=== PATIENT | male | born 1965 | race African-American/Black ===

== ENCOUNTER 2018-01-20 11:09 | Emergency (ER) | payer OTHER ==
[~2018-01-20] VITALS: Ht 170.2 cm; Wt 103.0 kg
[2018-01-20 11:15] VITALS: BP 133/79
== END 2018-01-20 19:01 | disposition left against medical advice (07) ==
LOC: ER 11:09
DX: Z53.21 Procedure and treatment not carried out due to patient leaving prior to being seen by health care provider (principal)

== ENCOUNTER 2018-11-18 02:46 | Emergency (ER) | payer OTHER ==
[~2018-11-18] VITALS: Ht 170.2 cm; Wt 89.0 kg
[2018-11-18] MEDS ORDERED: LIDOCAINE HCL/EPINEPHRINE 1%-EPI 1:100,000 20 ML VIAL INFIL ONE (04:15)
[2018-11-18] MEDS ORDERED: HYDROCODONE/ACETAMINOPHEN 5/325MG TABLET PO ONE (04:15)
[2018-11-18 06:43] VITALS: BP 136/83
== END 2018-11-18 06:45 | disposition home or self-care (01) ==
LOC: ER 02:46 → CANBEDREQ 07:15
DX: L02.31 Cutaneous abscess of buttock (principal); E11.9 Type 2 diabetes mellitus without complications; F17.200 Nicotine dependence, unspecified, uncomplicated
CPT/HCPCS: 10060; 87070; 87077; 87186; 87205; 99283; J3490

== ENCOUNTER 2018-11-19 11:12 | Emergency (ER) | payer OTHER ==
[~2018-11-19] VITALS: Ht 170.2 cm; Wt 88.0 kg
[2018-11-19 11:17] VITALS: BP 125/87
[2018-11-19] MEDS ORDERED: BACITRACIN ZINC OINT UDPKT TOP ONE (13:00)
== END 2018-11-19 13:10 | disposition home or self-care (01) ==
LOC: ER 11:31
DX: Z48.00 Encounter for change or removal of nonsurgical wound dressing (principal)
CPT/HCPCS: 99283

== ENCOUNTER 2021-07-11 16:23 | Emergency (ER) | payer MEDICAID, OTHER ==
[~2021-07-11] VITALS: Ht 172.7 cm; Wt 75.0 kg
[2021-07-11 16:28] VITALS: BP 158/95
== END 2021-07-11 17:14 | disposition home or self-care (01) ==
LOC: ER 16:23
DX: T16.1XXA Foreign body in right ear, initial encounter (principal); X58.XXXA Exposure to other specified factors, initial encounter
CPT/HCPCS: 99281

== ENCOUNTER 2021-07-15 19:20 | Emergency (ER) | payer MEDICAID ==
[~2021-07-15] VITALS: Ht 172.7 cm; Wt 75.0 kg
[2021-07-15 20:20] VITALS: BP 178/95
[2021-07-15] MEDS ORDERED: TOPUD PO (21:16)
[2021-07-15] MEDS ORDERED: IBUP-2028 MT (21:16)
[2021-07-15] MEDS ORDERED: AMOX-494 MT (21:18)
[2021-07-15] MEDS ORDERED: OFLO5DRO4 RIGHT EAR (21:19)
== END 2021-07-15 21:30 | disposition home or self-care (01) ==
LOC: ER 19:20
DX: H60.91 Unspecified otitis externa, right ear (principal); E11.9 Type 2 diabetes mellitus without complications; I10 Essential (primary) hypertension
CPT/HCPCS: 99283

== ENCOUNTER 2021-11-05 08:27 | Emergency (ER) | payer MEDICAID ==
[~2021-11-05] VITALS: Ht 170.2 cm; Wt 70.7 kg
[~2021-11-05 08:27] MED LIST: AMOX-494 MT; IBUP-2028 MT; OFLO5DRO4 RIGHT EAR; TOPUD PO
[2021-11-05] MEDS ORDERED: ONDANSETRON HCL 4MG/2ML INJ IV STA (09:16)
[2021-11-05] MEDS ORDERED: MORPHINE SULFATE 4 MG/ML CPJ (NOT FOR IM USE) IV STA (09:16)
[2021-11-05] MEDS ORDERED: MAGNESIUM/ALUMINUM HYDROXIDE/SIMETHICONE 30ML UDC PO STA (09:16)
[2021-11-05] MEDS ORDERED: FAMOTIDINE 20MG/2ML VIAL IV STA (09:16)
[2021-11-05] MEDS ORDERED: SODIUM CHLORIDE 0.9% 1,000 ML IV ONE (09:30)
[2021-11-05 09:34] LABS: BASOPHILS % 0.7 % (0.0-2.0); EOSINOPHILS % 0.6 % (0.0-5.0); HEMATOCRIT. 39.1 % (42.0-52.0); HEMOGLOBIN. 13.6 g/dL (14.0-18.0); MEAN CORPUSCULAR HEMOGLOBIN 30.5 pg (28.0-32.0); MEAN CORPUSCULAR VOLUME 87.9 fL (80.0-94.0); MEAN PLATELET VOLUME 8.8 fl (7.4-10.4); MONOCYTES % 7.9 % (2.0-8.0); NEUTROPHILS % 44.8 % (40.0-76.0); PLATELET 175 x1000/uL (130-400); RED BLOOD CELL COUNT 4.45 mill/uL (4.7-6.1); RED CELL DISTRIBUTION WIDTH 13.5 % (11.6-14.6)
[2021-11-05 09:43] LABS: CHLORIDE 105 mEq/L (98-107)
[2021-11-05] MEDS ORDERED: ONDA4TAB5 MT (12:13)
[2021-11-05] MEDS ORDERED: FAMO20TA8 MT (12:13)
[2021-11-05] MEDS ORDERED: MAG355OR20 PO (12:13)
[2021-11-05 12:57] VITALS: BP 151/98
[2021-11-05] MEDS ORDERED: IOHEXOL-300 100 ML BOTTLE ONE (13:52)
[2021-11-06] MEDS ORDERED: METO-293 MT (17:31)
[2021-11-06] MEDS ORDERED: DICY10SO MT (18:15)
[2021-11-10] MEDS ORDERED: LIP40 PO (15:05)
[2021-11-10] MEDS ORDERED: METF-416 PO (15:05)
[2021-11-10] MEDS ORDERED: LISI-186 PO (15:05)
[2021-11-10] MEDS ORDERED: GLIP5TAB12 PO (15:05)
== END 2021-11-05 13:21 | disposition home or self-care (01) ==
LOC: ER 08:27
DX: R10.84 Generalized abdominal pain (principal); K21.9 Gastro-esophageal reflux disease without esophagitis; K58.9 Irritable bowel syndrome, unspecified; E11.65 Type 2 diabetes mellitus with hyperglycemia; I10 Essential (primary) hypertension; Z79.84 Long term (current) use of oral hypoglycemic drugs
CPT/HCPCS: 36415; 71045; 74177; 80053; 83690; 85025; 96361; 96374; 96375; 99285; J2270; J2405; J7030; Q9967; Z7610

== ENCOUNTER 2021-11-06 13:08 | Emergency (ER) | payer MEDICAID ==
[~2021-11-06] VITALS: Ht 170.2 cm; Wt 68.0 kg
[~2021-11-06 13:08] MED LIST changes: +FAMO20TA8 MT; +MAG355OR20 PO; +ONDA4TAB5 MT
[2021-11-06] MEDS ORDERED: MORPHINE SULFATE 4 MG/ML CPJ (NOT FOR IM USE) IV STA (15:35)
[2021-11-06] MEDS ORDERED: DICYCLOMINE 10 MG/5 ML ORAL SYR PO STA (15:35)
[2021-11-06] MEDS ORDERED: SODIUM CHLORIDE 0.9% 1,000 ML IV ONE (15:45)
[2021-11-06] MEDS ORDERED: METOCLOPRAMIDE HCL 10MG/2ML VIAL IV ONE (16:00)
[2021-11-06 16:04] LABS: BASOPHILS % 0.6 % (0.0-2.0); EOSINOPHILS % 0.3 % (0.0-5.0); HEMATOCRIT. 40.3 % (42.0-52.0); HEMOGLOBIN. 13.9 g/dL (14.0-18.0); MEAN CORPUSCULAR HEMOGLOBIN 30.2 pg (28.0-32.0); MEAN CORPUSCULAR VOLUME 87.8 fL (80.0-94.0); MEAN PLATELET VOLUME 8.4 fl (7.4-10.4); MONOCYTES % 6.5 % (2.0-8.0); NEUTROPHILS % 51.6 % (40.0-76.0); PLATELET 194 x1000/uL (130-400); RED BLOOD CELL COUNT 4.59 mill/uL (4.7-6.1); RED CELL DISTRIBUTION WIDTH 13.5 % (11.6-14.6)
[2021-11-06 16:10] LABS: CHLORIDE 104 mEq/L (98-107)
[2021-11-06] MEDS ORDERED: METO-293 MT (17:31)
[2021-11-06] MEDS ORDERED: DICY10SO MT (18:15)
[2021-11-06 18:18] VITALS: BP 156/90
[2021-11-10] MEDS ORDERED: GLIP5TAB12 PO (15:05)
[2021-11-10] MEDS ORDERED: LIP40 PO (15:05)
[2021-11-10] MEDS ORDERED: LISI-186 PO (15:05)
[2021-11-10] MEDS ORDERED: METF-416 PO (15:05)
== END 2021-11-06 18:57 | disposition home or self-care (01) ==
LOC: ER 13:08
DX: R10.13 Epigastric pain (principal); K58.9 Irritable bowel syndrome, unspecified; I10 Essential (primary) hypertension; E11.9 Type 2 diabetes mellitus without complications; Z79.84 Long term (current) use of oral hypoglycemic drugs; Z98.890 Other specified postprocedural states; Z87.828 Personal history of other (healed) physical injury and trauma
CPT/HCPCS: 36415; 80053; 83690; 85025; 96361; 96374; 99283; J2765; J7030

== ENCOUNTER 2022-02-03 04:04 | Inpatient (IN) | payer MEDICAID ==
[~2022-02-03] VITALS: Ht 172.7 cm; Wt 74.4 kg
[2022-02-03] VITALS (36 sets, daily range): BP systolic 60–149; BP diastolic 31–82
[~2022-02-03 04:04] MED LIST changes: -AMOX-494 MT; +DICY10SO MT; +GLIP5TAB12 PO; -IBUP-2028 MT; +LIP40 PO; +LISI-186 PO; +METF-416 PO; +METO-293 MT; +PROT40 MT; +TRAM50TA94 MT
[2022-02-03] MEDS ORDERED: METOCLOPRAMIDE HCL 10MG/2ML VIAL IV STA (04:32)
[2022-02-03] MEDS ORDERED: FAMOTIDINE 20MG/2ML VIAL IV STA (04:32)
[2022-02-03] MEDS ORDERED: SODIUM CHLORIDE 0.9% 1,000 ML IV ONE (04:45)
[2022-02-03 05:50] LABS: HEMATOCRIT. 45.7 % (42.0-52.0); HEMOGLOBIN. 14.9 g/dL (14.0-18.0); MEAN CORPUSCULAR HEMOGLOBIN 29.3 pg (28.0-32.0); MEAN CORPUSCULAR VOLUME 89.8 fL (80.0-94.0); MEAN PLATELET VOLUME 9.5 fl (7.4-10.4); PLATELET 266 x1000/uL (130-400); RED BLOOD CELL COUNT 5.09 mill/uL (4.7-6.1); RED CELL DISTRIBUTION WIDTH 14.5 % (11.6-14.6)
[2022-02-03 05:58] LABS: CHLORIDE 102 mEq/L (98-107)
[2022-02-03 06:05] LABS: BETA HYDROXYBUTYRATE 1.1 mMol/L (0.0-0.3); ETHANOL BLOOD < 10 mg/dL
[2022-02-03 07:33] LABS: PLATELET ESTIMATE NORMAL
[2022-02-03 08:11] LABS: CLARITY URINE CLOUDY (CLEAR); COLOR URINE DARK YELLOW (YELLOW); KETONES URINE TRACE (NEGATIVE); LEUKOCYTE ESTERASE URINE 1+ (NEGATIVE); NITRITE URINE POSITIVE (NEGATIVE); OCCULT BLOOD URINE 3+ (NEGATIVE); PH URINE 5.5 (4.5-8.0); PROTEIN URINE 2+ (NEGATIVE); SPECIFIC GRAVITY URINE 1.023 (1.005-1.030)
[2022-02-03] MEDS ORDERED: SODIUM CHLORIDE 0.9% 10ML VIAL ONE (08:25)
[2022-02-03] MEDS ORDERED: VECURONIUM BROMIDE 10 MG/VIAL IV ONE (08:25)
[2022-02-03 08:29] LABS: *AMPHETAMINES SCREEN URINE NEGATIVE (NEGATIVE); *BARBITURATES SCREEN URINE NEGATIVE (NEGATIVE); *BENZODIAZEPINES SCREEN URINE NEGATIVE (NEGATIVE); *COCAINE SCREEN URINE NEGATIVE (NEGATIVE); CANNABINOID URINE SCREEN PRESUMTIVE POSITIVE (NEGATIVE); METHADONE URINE SCREEN NEGATIVE (NEGATIVE); OPIATES URINE SCREEN NEGATIVE (NEGATIVE); PHENCYCLIDINE URINE SCREEN NEGATIVE (NEGATIVE)
[2022-02-03] MEDS ORDERED: FAMOTIDINE 20MG/2ML VIAL IV NR (09:15)
[2022-02-03] MEDS ORDERED: METOCLOPRAMIDE HCL 10MG/2ML VIAL IV NR (09:15)
[2022-02-03] MEDS ORDERED: IOHEXOL-350 100 ML BOTTLE ONE (09:55)
[2022-02-03] MEDS ORDERED: LEVOFLOXACIN 500MG PREMIX 100 ML IV ONE (10:30)
[2022-02-03] MEDS ORDERED: METRONIDAZOLE 500 MG PREMIX 100 ML IV ONE (10:30)
[2022-02-03] MEDS ORDERED: MORPHINE SULFATE 4 MG/ML CPJ (NOT FOR IM USE) IV ONE (11:00)
[2022-02-03] MEDS ORDERED: NOREPINEPHRINE 8MG/250ML PMX 250 ML IV ONE (12:00)
[2022-02-03] MEDS ORDERED: MORPHINE SULFATE 2 MG/ML CPJ (NOT FOR IM USE) IV NR (14:45)
[2022-02-03] MEDS ORDERED: NOREPINEPHRINE 8MG/250ML PMX 250 ML IV PRN (15:00)
[2022-02-03] MEDS ORDERED: DEXT 5%/0.45% NACL 1000ML 1,000 ML IV SCH (15:30)
[2022-02-03] MEDS ORDERED: ACETAMINOPHEN 325MG TABLET PO PRN (15:30)
[2022-02-03] MEDS ORDERED: PIPERACILLIN/TAZ 3.375G PREMIX 50 ML IV NR (16:00)
[2022-02-03] MEDS: ENOXAPARIN 40MG/0.4ML SYR SUBCUT SCH ×2 (16:00→20:02)
[2022-02-03] MEDS ORDERED: FENTANYL CITRATE/PF 50MCG/ML 2ML VIAL ONE (16:08)
[2022-02-03 16:42] LABS: INR 1.4
[2022-02-03] MEDS ORDERED: NA PHOS,M-B/NA PHOS,DI-BA ENEMA 118ML PR NR (16:45)
[2022-02-03 16:52] LABS: CREATINE KINASE 225 IU/L (39-308)
[2022-02-03] MEDS ORDERED: PHENYLEPHRINE 100 MG in DEXT 5% WATER 240 ML IV PRN (17:00)
[2022-02-03] MEDS: PHENYLEPHRINE 100 MG in DEXT 5% WATER 240 ML IV PRN ×2 (17:53→23:39)
[2022-02-03] MEDS: NOREPINEPHRINE 32 MG in DEXT 5% WATER 218 ML IV PRN ×2 (17:54→23:38)
[2022-02-03] MEDS: VASOPRESSIN 20 UNIT in SODIUM CHLORIDE 0.9% 99 ML IV PRN (19:39)
[2022-02-03] MEDS ORDERED: DOPAMINE 800MG PREMIX (DOUBLE) 250 ML IV PRN (19:45)
[2022-02-03 20:40] LABS: BG BASE EXCESS -28.1 mmol/L (-2.0-2.0); BG CARBOXYHEMOGLOBIN 0.7 % (0.5-1.5); BG DEOXYHEMOGLOBIN 0.2 % (0.0-5.0); BG FRACTION INSPIRED OXYGEN 100; BG HCO3 ACT 8.4 mmol/L (22.0-26.0); BG METHEMOGLOBIN 0.2 % (0.0-1.5); BG OXYGEN SATURATION 99.8 % (92.0-98.5); BG OXYHEMOGLOBIN 98.9 % (94.0-97.0); BG PCO2 61.8 mmHg (35.0-45.0); BG PO2 437.6 mmHg (75.0-100.0); BG SAMPLE SITE RIGHT RADIAL; BG TOTAL HEMOGLOBIN 15.9 g/dL (12.0-18.0); BG VENT MODE VENT - AC
[2022-02-03 20:46] LABS: HEMATOCRIT. 50.1 % (42.0-52.0); HEMOGLOBIN. 15.9 g/dL (14.0-18.0); MEAN CORPUSCULAR HEMOGLOBIN 29.6 pg (28.0-32.0); MEAN CORPUSCULAR VOLUME 93.2 fL (80.0-94.0); MEAN PLATELET VOLUME 9.6 fl (7.4-10.4); PLATELET 240 x1000/uL (130-400); RED BLOOD CELL COUNT 5.38 mill/uL (4.7-6.1); RED CELL DISTRIBUTION WIDTH 15.4 % (11.6-14.6)
[2022-02-03] MEDS ORDERED: SODIUM BICARBONATE 8.4% 1 MEQ/ML 50ML SYR IV NR ×2 (21:00→23:15)
[2022-02-03] MEDS ORDERED: HYDROCORTISONE SOD SUCCINATE 250 MG/2 ML VIAL IV NR (21:00)
[2022-02-03 21:05] LABS: CHLORIDE 111 mEq/L (98-107)
[2022-02-03] MEDS: PIPERACILLIN/TAZOBACTAM 3.375 G in DEXTROSE 5% WATER 50 ML IV SCH (21:05)
[2022-02-03 21:30] LABS: PLATELET ESTIMATE NORMAL
[2022-02-03] MEDS ORDERED: VANCOMYCIN 1,750 MG in DEXT 5% WATER 500 ML IV NR (22:00)
[2022-02-03 22:17] LABS: PHOSPHORUS 12.2 mg/dL (2.5-4.9)
[2022-02-03 22:49] LABS: BG BASE EXCESS -23.1 mmol/L (-2.0-2.0); BG DEOXYHEMOGLOBIN 0.8 % (0.0-5.0); BG FRACTION INSPIRED OXYGEN 50; BG HCO3 ACT 9.4 mmol/L (22.0-26.0); BG METHEMOGLOBIN 0.3 % (0.0-1.5); BG OXYGEN SATURATION 99.2 % (92.0-98.5); BG OXYHEMOGLOBIN 96.9 % (94.0-97.0); BG PCO2 45.9 mmHg (35.0-45.0); BG PEEP (cmH2O) 0 cmH2O; BG PH 6.929 (7.350-7.450); BG SAMPLE SITE RIGHT BRACHIAL; BG TOTAL HEMOGLOBIN 15.7 g/dL (12.0-18.0); BG VENT MODE VENT - AC
[2022-02-04] VITALS (34 sets, daily range): BP systolic 68–137; BP diastolic 47–85
[2022-02-04 00:56] LABS: BG BASE EXCESS -19.9 mmol/L (-2.0-2.0); BG DEOXYHEMOGLOBIN 1.6 % (0.0-5.0); BG FRACTION INSPIRED OXYGEN 50; BG METHEMOGLOBIN 0.2 % (0.0-1.5); BG OXYGEN SATURATION 98.4 % (92.0-98.5); BG OXYHEMOGLOBIN 96.2 % (94.0-97.0); BG PCO2 52.2 mmHg (35.0-45.0); BG PH 6.978 (7.350-7.450); BG PO2 134.8 mmHg (75.0-100.0); BG SAMPLE SITE RIGHT BRACHIAL; BG VENT MODE VENT - AC
[2022-02-04] MEDS ORDERED: SODIUM BICARBONATE 8.4% 1 MEQ/ML 50ML SYR IV NR ×3 (01:15→06:45)
[2022-02-04] MEDS ORDERED: SODIUM BICARBONATE 150 MEQ in DEXTROSE 5% WATER 1,000 ML IV SCH (01:30)
[2022-02-04] MEDS ORDERED: SODIUM BICARBONATE 8.4% 1 MEQ/ML 50ML SYR IV ONE ×2 (04:00→09:22)
[2022-02-04] MEDS ORDERED: SODIUM BICARBONATE 8.4% 1 MEQ/ML 50ML SYR IV SCH (04:00)
[2022-02-04] MEDS ORDERED: SODIUM CHLORIDE 0.9% 500 ML IV ONE (04:45)
[2022-02-04 04:49] LABS: BG BASE EXCESS -12.3 mmol/L (-2.0-2.0); BG CARBOXYHEMOGLOBIN 1.7 % (0.5-1.5); BG DEOXYHEMOGLOBIN 0.8 % (0.0-5.0); BG FRACTION INSPIRED OXYGEN 75; BG HCO3 ACT 16.5 mmol/L (22.0-26.0); BG METHEMOGLOBIN 0.3 % (0.0-1.5); BG OXYGEN SATURATION 99.2 % (92.0-98.5); BG OXYHEMOGLOBIN 97.2 % (94.0-97.0); BG PCO2 48.8 mmHg (35.0-45.0); BG PH 7.147 (7.350-7.450); BG PO2 205.4 mmHg (75.0-100.0); BG SAMPLE SITE RIGHT BRACHIAL; BG TOTAL HEMOGLOBIN 14.2 g/dL (12.0-18.0); BG VENT MODE VENT - AC
[2022-02-04] MEDS: PIPERACILLIN/TAZOBACTAM 3.375 G in DEXTROSE 5% WATER 50 ML IV SCH (05:01)
[2022-02-04 05:34] LABS: HEMATOCRIT. 47.4 % (42.0-52.0); HEMOGLOBIN. 15.6 g/dL (14.0-18.0); MEAN CORPUSCULAR HEMOGLOBIN 30.4 pg (28.0-32.0); MEAN CORPUSCULAR VOLUME 92.5 fL (80.0-94.0); MEAN PLATELET VOLUME 9.9 fl (7.4-10.4); PLATELET 162 x1000/uL (130-400); RED BLOOD CELL COUNT 5.12 mill/uL (4.7-6.1)
[2022-02-04 06:13] LABS: HEPATITIS B SURFACE ANTIGEN NEGATIVE
[2022-02-04] MEDS ORDERED: DIGOXIN 500MCG/2ML AMP IV NR ×2 (06:45→07:45)
[2022-02-04] MEDS: VASOPRESSIN 20 UNIT in SODIUM CHLORIDE 0.9% 99 ML IV PRN (07:45)
[2022-02-04] MEDS: PHENYLEPHRINE 100 MG in DEXT 5% WATER 240 ML IV PRN (07:45)
[2022-02-04] MEDS ORDERED: DEXTROSE 50% WATER 50ML SYRINGE IV ONE ×2 (07:57→09:22)
[2022-02-04] MEDS ORDERED: DEXTROSE 50% WATER 50ML SYRINGE IV NR (08:00)
[2022-02-04] MEDS ORDERED: INSULIN REGULAR (HUMULIN R) 300UNITS/3ML VIAL IV NR (08:00)
[2022-02-04 08:23] LABS: BG BASE EXCESS -5.4 mmol/L (-2.0-2.0); BG CARBOXYHEMOGLOBIN 2.5 % (0.5-1.5); BG DEOXYHEMOGLOBIN 0.8 % (0.0-5.0); BG FRACTION INSPIRED OXYGEN 60; BG HCO3 ACT 20.6 mmol/L (22.0-26.0); BG METHEMOGLOBIN 0.1 % (0.0-1.5); BG OXYGEN SATURATION 99.2 % (92.0-98.5); BG OXYHEMOGLOBIN 96.6 % (94.0-97.0); BG PH 7.309 (7.350-7.450); BG SAMPLE SITE RIGHT RADIAL; BG TOTAL HEMOGLOBIN 15.6 g/dL (12.0-18.0); BG VENT MODE VENT - AC
[2022-02-04] MEDS ORDERED: VANCOMYCIN 1GM PMX (XELLIA) 200 ML IV SCH ×2 (09:00→21:00)
[2022-02-04] MEDS ORDERED: MAGNESIUM SULFATE 4G IN WATER 100ML PREMIX IV ONE (09:22)
[2022-02-04] MEDS ORDERED: CALCIUM CHLORIDE 1GM/10ML SYR IV ONE (09:22)
[2022-02-04] MEDS ORDERED: EPINEPHRINE 0.1MG/ML (1:10,000) 10ML SYR ONE (09:22)
[2022-02-04] MEDS ORDERED: AMIODARONE HCL 50MG/ML 3ML VIAL IV ONE (09:22)
[2022-02-04 09:28] LABS: PLATELET ESTIMATE NORMAL
== END 2022-02-04 08:08 | DRG 720 ==
LOC: ER 04:04 → CVICU 12:20 → EDBEDREQSVC 12:36 → ENRESERV 12:41
PROVIDERS: ADMIT Internal Medicine; ATTEND Internal Medicine
PROC: 02H633Z Insertion of Infusion Device into Right Atrium, Percutaneous Approach (ICD-10-PCS; principal; 2022-02-03)
PROC: 5A1935Z Respiratory Ventilation, Less than 24 Consecutive Hours (ICD-10-PCS; 2022-02-03)
PROC: B548ZZA Ultrasonography of Superior Vena Cava, Guidance (ICD-10-PCS; 2022-02-03)
PROC: 0BH17EZ Insertion of Endotracheal Airway into Trachea, Via Natural or Artificial Opening (ICD-10-PCS; 2022-02-03)
PROC: 5A12012 Performance of Cardiac Output, Single, Manual (ICD-10-PCS; 2022-02-04)
DX: A41.9 Sepsis, unspecified organism (principal); J96.01 Acute respiratory failure with hypoxia; R65.21 Severe sepsis with septic shock; E87.2 Acidosis; E11.649 Type 2 diabetes mellitus with hypoglycemia without coma; K52.9 Noninfective gastroenteritis and colitis, unspecified; R74.01 Elevation of levels of liver transaminase levels; K56.41 Fecal impaction; N21.0 Calculus in bladder; N39.0 Urinary tract infection, site not specified; I70.0 Atherosclerosis of aorta; I10 Essential (primary) hypertension; E11.65 Type 2 diabetes mellitus with hyperglycemia; E78.5 Hyperlipidemia, unspecified; K21.9 Gastro-esophageal reflux disease without esophagitis; Z20.822 Contact with and (suspected) exposure to COVID-19; Z79.899 Other long term (current) drug therapy; Z87.11 Personal history of peptic ulcer disease; Z86.718 Personal history of other venous thrombosis and embolism
CPT/HCPCS: 31500; 36415; 36600; 71045; 74018; 74174; 74176; 80048; 80053; 80076; 80305; 80320; 81003; 82010; 82375; 82533; 82550; 82805; 82962; 82977; 83605; 83735; 84100; 84484; 85025; 86705; 86709; 86803; 87070; 87340; 87426; 92950; 93005; 94002; 94003; 99291; C9803; J0282; J1160; J1265; J1650; J1720; J1956; J2270; J2370; J2543; J2765; J3010; J3370; J3475; J3490; J7030; J7050; J7060; J7070; Q9967; A4315; G0480